=== PATIENT | female | born 1980 | race Caucasian/White ===

== ENCOUNTER 2019-04-03 21:18 | Emergency (ER) | payer MEDICAID ==
[~2019-04-03] VITALS: Ht 162.6 cm; Wt 83.9 kg
[2019-04-03 21:50] VITALS: BP_SYST 150
--- NOTE | 2019-04-04 01:03 | NUR ---
pt ambulatory to be hallway for evaluation
--- NOTE | 2019-04-04 01:05 | NUR ---
ER at bedside examining patient.
--- NOTE | 2019-04-04 01:30 | NUR ---
Pt BIB family to ED C/O s/p head trauma ~20 minutes prior to arrival. Patient states she was thrown off the back of a horse and landed onto her back. She was wearing a helmet. She endorses loss of consciousness for ~10-15 seconds and vomiting after regaining consciousness. She she currently complains of a headache, abdominal pain secondary to bruising, lower posterior neck pain, back pain down along her spine, and right leg weakness, numbness, and tingling. No other complaints and or injuries noted VSS no s/s of acute distress Resting on gurney rails up
[2019-04-04] MEDS ORDERED: MORPHINE 2 MG/ML INJ. SYRINGE IM ONE (02:15)
--- NOTE | 2019-04-04 02:30 | NUR ---
Pt taken to Radiology in stable condition
--- NOTE | 2019-04-04 03:28 | NUR ---
Pt back from Radiology well tolerated
[2019-04-04 04:40] VITALS: BP_SYST 150
--- NOTE | 2019-04-04 04:40 | NUR ---
Patient given written and verbal discharge instructions and verbalizes understanding. ER MD discussed with patient the results and treatment provided. Patient in stable condition. ID arm band removed. Rx of Wilber given. Patient educated on pain management and to follow up with PMD. Pain Scale 0/10 Opportunity for questions provided and answered. Medication side effect fact sheet provided.
== END 2019-04-04 04:40 | disposition home or self-care (01) ==
LOC: SED 21:18
DX: S22.069A Unspecified fracture of T7-T8 vertebra, initial encounter for closed fracture (principal); Z90.49 Acquired absence of other specified parts of digestive tract; V80.010A Animal-rider injured by fall from or being thrown from horse in noncollision accident, initial encounter; Y93.52 Activity, horseback riding; Y92.89 Other specified places as the place of occurrence of the external cause; Y99.8 Other external cause status
CPT/HCPCS: 70450; 72128; 72131; 74176; 81025; 96372; 99285; J2270